=== PATIENT | female | born 1955 | race Caucasian/White ===

== ENCOUNTER 2016-07-27 10:58 | Emergency (ER) | payer MEDICARE ==
[~2016-07-27] VITALS: Ht 170.2 cm; Wt 131.8 kg
[~2016-07-27 10:58] MED LIST: ACET650S21 PO; ALBU5SOL5 INH; ALBU8.5H3 INH; ALPR-475 PO; ASPI-515 PO; CHLO25TA PO; CIPR500T87 PO; CYCL5TAB PO; DICY20TA3 PO; DIPH25CA61 PO; FLUO20TA25 PO; FLUO40CA9 PO; GUAI100L11 PO; HALO2ORA9 PO; HYDR25TA11 PO; LACT10SO28 PO; LACT1CAP43 PO; LIDO700A5 TD; LORA0.5T PO; LORA2ORA PO; METH5TAB2 PO; METO25TA35 PO; METR250T PO; METR500T4 PO; MORP30CA15 PO; MULT-26 PO; NAPR-874 PO; OMEG-76 PO; OMEP-110 PO; ONDA8TAB9 PO; OXYC10TA6 PO; OXYC5TAB3 PO; PRAV10TA2 PO; PROM25TA10 PO; SERT25TA3 PO; SULF1TAB24 PO; TRAZ100T15 PO; TRAZ50TA18 PO; VITA1TAB67 PO; WATER PILL; ZOLP10TA PO; [UNRECOGNIZED DRUG - OTHER] PO
[2016-07-27] MEDS ORDERED: SODIUM CHLORIDE 0.9% 1,000ML IVBOLUS ONE (12:00)
[2016-07-27] MEDS ORDERED: PANTOPRAZOLE 40 MG IV IVPush ONE (12:00)
[2016-07-27] MEDS ORDERED: ONDANSETRON 2MG/ML, 2ML IVPush ONE (12:00)
[2016-07-27] MEDS ORDERED: FAMOTIDINE 20 MG/2 ML IVPush ONE (12:00)
[2016-07-27] MEDS ORDERED: SODIUM CHLORIDE FLUSH 10ML SYR IVF ONE (12:00)
[2016-07-27] MEDS ORDERED: FAMOTIDINE 20 MG/2 ML ONE (12:02)
[2016-07-27] MEDS ORDERED: PANTOPRAZOLE 40 MG IV ONE (12:03)
[2016-07-27] MEDS ORDERED: ONDANSETRON 2MG/ML, 2ML ONE (12:03)
[2016-07-27 12:20] LABS: BLOOD UREA NITROGEN 5 mg/dL (7-18)
[2016-07-27 12:23] LABS: ASPARTATE AMINO TRANSFERASE 25 U/L (15-37)
[2016-07-27 12:28] LABS: HEMOGLOBIN 13.2 g/dL (11.7-16.4)
[2016-07-27] MEDS ORDERED: LORazepam 2 MG/ML, 1ML IVPush ONE (13:00)
[2016-07-27] MEDS ORDERED: PROMETHAZINE 25 MG/ML, 1ML IM ONE (13:00)
[2016-07-27] MEDS ORDERED: LORazepam 2 MG/ML, 1ML ONE (13:05)
[2016-07-27] MEDS ORDERED: PROMETHAZINE 25 MG/ML, 1ML ONE (13:05)
[2016-07-27 14:00] VITALS: BP 150/76
== END 2016-07-27 15:51 | disposition home or self-care (01) ==
LOC: ED 11:15
DX: K29.00 Acute gastritis without bleeding (principal); B96.81 Helicobacter pylori [H. pylori] as the cause of diseases classified elsewhere; I10 Essential (primary) hypertension; J44.9 Chronic obstructive pulmonary disease, unspecified; K72.90 Hepatic failure, unspecified without coma; E78.5 Hyperlipidemia, unspecified; G89.29 Other chronic pain
CPT/HCPCS: 36415; 80053; 83605; 83690; 85025; 85610; 85730; 86677; 86850; 86900; 96361; 96372; 96374; 96375; 99284; C9113; J2405; J2550; J7030; S0028

== ENCOUNTER 2017-05-15 12:36 | Inpatient (IN) | payer MEDICARE ==
[~2017-05-15] VITALS: Ht 167.6 cm; Wt 65.3 kg
[~2017-05-15 12:36] MED LIST changes: -ALBU5SOL5 INH; +ALBU5SOL6 INH; -ALBU8.5H3 INH; +ALBU8.5H8 INH; +ASPI-650 PO; +DIPH1TAB6 PO; -METR500T4 PO; +METR500T8 PO; +NADO20TA PO; -NAPR-874 PO; +NAPR250T6 PO; +TRAM50TA2 PO
[2017-05-15 14:27] LABS: ALBUMIN 3.6 g/dL (3.4-5.0); ANION GAP 7 mmol/L (5-15); CALCIUM 8.9 mg/dL (8.5-10.1); CHLORIDE 107 mmol/L (98-107); CREATININE 0.75 mg/dL (0.55-1.02)
[2017-05-15 14:29] LABS: ALANINE AMINOTRANSFERASE 19 U/L (12-78); ALKALINE PHOSPHATASE 94 U/L (45-117); BILIRUBIN,TOTAL 0.6 mg/dL (0.2-1.0); TOTAL PROTEIN 6.5 g/dL (6.4-8.2)
[2017-05-15 14:56] LABS: BASOPHILS # (AUTO) 0.01 x10^3/uL (0-0.1); BASOPHILS % (AUTO) 0 % (0-1); EOSINOPHILS # (AUTO) 0.05 x10^3/uL (0-0.4); EOSINOPHILS % (AUTO) 2 % (1-7); LYMPHOCYTES # (AUTO) 0.54 x10^3/uL (1-3.4); LYMPHOCYTES % (AUTO) 24 % (22-44); MD MORPH REVIEW ONLY; MEAN CORPUSCULAR HEMOGLOBIN 27.5 pg (27.0-34.8); MEAN CORPUSCULAR VOLUME 83.2 fL (80-100); MEAN PLATELET VOLUME 9.8 fL (7.4-10.4); MONOCYTES # (AUTO) 0.12 x10^3/uL (0.2-0.8); MONOCYTES % (AUTO) 5 % (2-9); NEUTROPHILS # (AUTO) 1.53 x10^3/uL (1.8-6.8); NEUTROPHILS % (AUTO) 68 % (42-75); RED CELL DISTRIBUTION WIDTH 19.4 % (9.6-15.2)
[2017-05-15 14:57] LABS: PLATELET COUNT 24 x10^3/uL (130-400)
[2017-05-15 14:58] LABS: ANISOCYTOSIS 1+
[2017-05-15 14:59] LABS: <PLATELET ESTIMATE> DECREASED; <PLT MORPHOLOGY> NORMAL PLT MORPH
[2017-05-15] MEDS ORDERED: SODIUM CHLORIDE 0.9%, 500ML IVBOLUS ONE (15:00)
[2017-05-15] MEDS ORDERED: DIPHENOXYLATE/ATROPINE TABLET PO PRN (16:00)
[2017-05-15] MEDS ORDERED: ONDANSETRON 2MG/ML, 2ML IVPush PRN (16:00)
[2017-05-15] MEDS ORDERED: DOCUSATE 100 MG CAPSULE PO PRN (16:00)
[2017-05-15] MEDS ORDERED: ALBUTEROL 0.5%, 20ML NEB PRN (16:00)
[2017-05-15] MEDS ORDERED: POLYETHYLENE GLYCOL 17 GM PACKET PO PRN (16:00)
[2017-05-15] MEDS ORDERED: NICOTINE 14MG/24 HR PATCH.TD24 ONE (16:39)
[2017-05-15] MEDS: NICOTINE 14MG/24 HR PATCH.TD24 TD SCH (16:45)
[2017-05-15] MEDS: LACTULOSE 20 GM/30 ML UDC PO SCH (16:45)
[2017-05-15] MEDS ORDERED: NS + 20MEQ KCL 1,000 ML IV ONE (16:46)
[2017-05-15] MEDS ORDERED: OXYcodone IR 5MG TABLET ONE (16:49)
[2017-05-15] MEDS: OXYcodone IR 5MG TABLET PO PRN (16:51)
[2017-05-15] MEDS: NS + 20MEQ KCL 1,000 ML IV SCH (16:56)
[2017-05-15 18:42] VITALS: BP 111/58
[2017-05-15] MEDS: LORazepam 0.5MG TABLET PO PRN (20:14)
[2017-05-15] MEDS: TRAZODONE 100MG TABLET PO SCH (21:54)
[2017-05-15] MEDS: FAMOTIDINE 20 MG TABLET PO SCH (21:54)
[2017-05-16] MEDS: TRAZODONE 100MG TABLET PO SCH (00:45)
[2017-05-16] MEDS: FAMOTIDINE 20 MG TABLET PO SCH ×2 (00:45→20:12)
[2017-05-16 01:05] LABS: MICROSCOPIC AUTO
[2017-05-16 01:06] LABS: CULTURE INDICATED? YES
[2017-05-16 01:10] LABS: AMPHETAMINE SCREEN, URINE Negative (Negative); BARBITURATE SCREEN, URINE Negative (Negative); BENZODIAZEPINE SCREEN, URINE Negative (Negative); CANNABINOID SCREEN, URINE Positive (Negative); COCAINE SCREEN, URINE Negative (Negative); METHADONE SCREEN, URINE Positive (Negative); OPIATE SCREEN, URINE Negative (Negative)
[2017-05-16 01:50] VITALS: BP 116/69
[2017-05-16] MEDS: OXYcodone IR 5MG TABLET PO PRN ×3 (05:38→20:12)
[2017-05-16] MEDS: NS + 20MEQ KCL 1,000 ML IV SCH (05:41)
[2017-05-16 05:44] LABS: CHLORIDE 111 mmol/L (98-107)
[2017-05-16 05:58] LABS: MEAN CORPUSCULAR HEMOGLOBIN 27.9 pg (27.0-34.8); MEAN CORPUSCULAR HGB CONC 33.5 g/dL (32.4-35.8); MEAN CORPUSCULAR VOLUME 83.4 fL (80-100); RED BLOOD COUNT 4.43 x10^6/uL (3.82-5.3); RED CELL DISTRIBUTION WIDTH 19.7 % (9.6-15.2)
[2017-05-16 05:58] LABS: ALANINE AMINOTRANSFERASE 14 U/L (12-78); ALBUMIN 3.1 g/dL (3.4-5.0); ALKALINE PHOSPHATASE 82 U/L (45-117); ANION GAP 9 mmol/L (5-15); BILIRUBIN,TOTAL 0.8 mg/dL (0.2-1.0); CALCIUM 8.3 mg/dL (8.5-10.1); CREATININE 0.65 mg/dL (0.55-1.02); TOTAL PROTEIN 5.5 g/dL (6.4-8.2)
[2017-05-16 06:24] LABS: MEAN PLATELET VOLUME 9.4 fL (7.4-10.4)
[2017-05-16 06:25] LABS: PLATELET COUNT 24 x10^3/uL (130-400)
[2017-05-16 06:37] LABS: BASOPHILS % (AUTO) 0 % (0-1); EOSINOPHILS # (AUTO) 0.05 x10^3/uL (0-0.4); EOSINOPHILS % (AUTO) 3 % (1-7); LYMPHOCYTES # (AUTO) 0.57 x10^3/uL (1-3.4); LYMPHOCYTES % (AUTO) 35 % (22-44); MD SCAN; MONOCYTES # (AUTO) 0.11 x10^3/uL (0.2-0.8); MONOCYTES % (AUTO) 7 % (2-9); NEUTROPHILS # (AUTO) 0.91 x10^3/uL (1.8-6.8); NEUTROPHILS % (AUTO) 56 % (42-75)
[2017-05-16 07:07] VITALS: BP_SYST 106; BP_SYST 130; BP_DIAS 61; BP_DIAS 78
[2017-05-16] MEDS ORDERED: LORazepam 1MG TABLET ONE (08:36)
[2017-05-16] MEDS: NADOLOL 20 MG HOMEMEDPO SCH (08:41)
[2017-05-16] MEDS: LACTULOSE 20 GM/30 ML UDC PO SCH ×2 (08:41→17:35)
[2017-05-16] MEDS: LORazepam 0.5MG TABLET PO PRN ×2 (08:42→16:11)
[2017-05-16] MEDS ORDERED: LACTULOSE 20 GM/30 ML UDC PO SCH (09:00)
[2017-05-16 15:21] VITALS: BP 148/77
[2017-05-16] MEDS: NICOTINE 14MG/24 HR PATCH.TD24 TD SCH (16:10)
[2017-05-16 19:26] VITALS: BP 142/80
[2017-05-17 00:41] VITALS: BP 145/77
[2017-05-17] MEDS: OXYcodone IR 5MG TABLET PO PRN ×3 (01:22→16:16)
[2017-05-17 07:25] VITALS: BP 128/71
[2017-05-17] MEDS: NADOLOL 20 MG HOMEMEDPO SCH (08:34)
[2017-05-17] MEDS: FAMOTIDINE 20 MG TABLET PO SCH (08:34)
[2017-05-17] MEDS: LACTULOSE 20 GM/30 ML UDC PO SCH ×2 (08:35→16:16)
[2017-05-17] MEDS: NICOTINE 14MG/24 HR PATCH.TD24 TD SCH (08:39)
[2017-05-17 10:59] LABS: INTERNATIONAL NORMALIZED RATIO 1.36 (0.93-1.1); PROTHROMBIN TIME 14.1 Seconds (9.6-11.5)
[2017-05-17] MEDS ORDERED: LORazepam 1MG TABLET ONE (13:38)
[2017-05-17] MEDS: LORazepam 0.5MG TABLET PO PRN (13:42)
[2017-05-17 16:03] VITALS: BP 135/76
[2017-05-17] MEDS ORDERED: METH4TAB2 PO (16:07)
== END 2017-05-17 17:00 | disposition home or self-care (01) | DRG 441 ==
LOC: ED 15:30 → EDIP 15:31 → SUATTDRO 15:37 → ED 16:08 → 4NOR 17:51
PROVIDERS: ADMIT Family Medicine; ATTEND Family Medicine
DX: K72.90 Hepatic failure, unspecified without coma (principal); G93.41 Metabolic encephalopathy; D69.3 Immune thrombocytopenic purpura; D70.9 Neutropenia, unspecified; F03.90 Unspecified dementia, unspecified severity, without behavioral disturbance, psychotic disturbance, mood disturbance, and anxiety; K75.4 Autoimmune hepatitis; Z88.6 Allergy status to analgesic agent; Z88.8 Allergy status to other drugs, medicaments and biological substances; E78.5 Hyperlipidemia, unspecified; F17.200 Nicotine dependence, unspecified, uncomplicated; I10 Essential (primary) hypertension; I25.10 Atherosclerotic heart disease of native coronary artery without angina pectoris; J44.9 Chronic obstructive pulmonary disease, unspecified; K74.60 Unspecified cirrhosis of liver; N28.9 Disorder of kidney and ureter, unspecified; Z66 Do not resuscitate; Z90.710 Acquired absence of both cervix and uterus; Z95.1 Presence of aortocoronary bypass graft
CPT/HCPCS: 36415; 70450; 71045; 76700; 80053; 80307; 81001; 82140; 83605; 83690; 83735; 83930; 85025; 85610; 87040; 87086; 96360; J3480; J7040; J7512

== ENCOUNTER 2017-07-12 18:56 | Inpatient (IN) | payer MEDICARE, MEDICAID ==
[~2017-07-12] VITALS: Ht 167.6 cm; Wt 68.2 kg
[~2017-07-12 18:56] MED LIST changes: +METH4TAB2 PO
[2017-07-12] MEDS ORDERED: DOCU100T PO (19:27)
[2017-07-12] MEDS ORDERED: LORA0.5T PO (19:27)
[2017-07-12] MEDS ORDERED: OMEP40CA6 PO (19:27)
[2017-07-12] MEDS ORDERED: OXYC10TA6 PO (19:27)
[2017-07-12] MEDS ORDERED: ONDA4TAB13 SL (19:27)
[2017-07-12] MEDS ORDERED: HYDR10TA4 PO (19:27)
[2017-07-12] MEDS ORDERED: LEVO330T PO (19:27)
[2017-07-12] MEDS ORDERED: CYPR4TAB PO (19:27)
[2017-07-12] MEDS ORDERED: SODIUM CHLORIDE 0.9% 1,000ML IVBOLUS ONE (19:30)
[2017-07-12] MEDS ORDERED: SODIUM CHLORIDE FLUSH 10ML SYR IVF ONE (19:30)
[2017-07-12] MEDS ORDERED: LORazepam 2 MG/ML, 1ML IVPush ONE (19:30)
[2017-07-12] MEDS ORDERED: AMPICILLIN/SULBACTAM 3 GM in SODIUM CHLORIDE 0.9% 100 ML IV ONE (19:30)
[2017-07-12] MEDS ORDERED: HYDROmorphone 1 MG/ML, 1ML IV ONE (19:30)
[2017-07-12] MEDS ORDERED: HYDROmorphone 1 MG/ML, 1ML ONE (19:35)
[2017-07-12] MEDS ORDERED: LORazepam 2 MG/ML, 1ML ONE (19:36)
[2017-07-12] MEDS ORDERED: OMNIPAQUE 350 MG/ML, 100ML BOTTLE ONE (19:36)
[2017-07-12 20:07] LABS: ALANINE AMINOTRANSFERASE 27 U/L (12-78); ALBUMIN 3.5 g/dL (3.4-5.0); ANION GAP 8 mmol/L (5-15); CALCIUM 8.6 mg/dL (8.5-10.1); CHLORIDE 107 mmol/L (98-107); CREATININE 0.65 mg/dL (0.55-1.02)
[2017-07-12 20:10] LABS: ALKALINE PHOSPHATASE 101 U/L (45-117); BILIRUBIN,TOTAL 0.8 mg/dL (0.2-1.0); TOTAL PROTEIN 6.6 g/dL (6.4-8.2)
[2017-07-12] MEDS ORDERED: ALBUTEROL/IPRATROPIUM 2.5MG/0.5MG, 3 ML ONE (20:19)
[2017-07-12 20:21] LABS: BASOPHILS % (AUTO) 0 % (0-1); EOSINOPHILS # (AUTO) 0.03 x10^3/uL (0-0.4); EOSINOPHILS % (AUTO) 1 % (1-7); LYMPHOCYTES % (AUTO) 21 % (22-44); MD SCAN; MEAN CORPUSCULAR HEMOGLOBIN 28.4 pg (27.0-34.8); MEAN CORPUSCULAR HGB CONC 32.9 g/dL (32.4-35.8); MEAN CORPUSCULAR VOLUME 86.2 fL (80-100); MEAN PLATELET VOLUME 8.8 fL (7.4-10.4); MONOCYTES # (AUTO) 0.22 x10^3/uL (0.2-0.8); MONOCYTES % (AUTO) 9 % (2-9); NEUTROPHILS # (AUTO) 1.65 x10^3/uL (1.8-6.8); NEUTROPHILS % (AUTO) 69 % (42-75); RED BLOOD COUNT 4.43 x10^6/uL (3.82-5.3); RED CELL DISTRIBUTION WIDTH 19.8 % (9.6-15.2)
[2017-07-12 20:25] LABS: PLATELET COUNT 23 x10^3/uL (130-400)
[2017-07-12 20:28] LABS: RAPID INFLUENZA A Negative (Negative); RAPID INFLUENZA B Negative (Negative)
[2017-07-12] MEDS ORDERED: ALBUTEROL/IPRATROPIUM 2.5MG/0.5MG, 3 ML NPPB ONE (20:30)
[2017-07-12] MEDS ORDERED: SODIUM CHLORIDE FLUSH 10ML SYR IVF PRN (22:00)
[2017-07-12] MEDS ORDERED: hydrOXyzine 10MG TABLET PO PRN (23:30)
[2017-07-12] MEDS ORDERED: ALBUTEROL 0.5%, 20ML NEB PRN (23:30)
[2017-07-12 23:35] VITALS: BP 111/69
[2017-07-13] MEDS ORDERED: CYPROHEPTADINE 4 MG TABLET PO SCH ×2 (00:08→09:00)
[2017-07-13] MEDS ORDERED: LEVOCARNITINE 330 MG TABLET PO SCH ×2 (00:08→09:00)
[2017-07-13 00:52] VITALS: BP 107/64
[2017-07-13] MEDS: LEVOCARNITINE 330 MG TABLET PO SCH ×3 (01:06→20:03)
[2017-07-13] MEDS: LORazepam 0.5MG TABLET PO SCH ×4 (01:06→20:04)
[2017-07-13] MEDS: TRAZODONE 100MG TABLET PO SCH ×2 (01:06→20:04)
[2017-07-13] MEDS: OXYcodone IR 5MG TABLET PO PRN ×5 (01:07→20:04)
[2017-07-13] MEDS: CYPROHEPTAD HOMEMEDPO SCH ×4 (01:07→20:04)
[2017-07-13 06:49] VITALS: BP 106/65
[2017-07-13] MEDS: DOCUSATE 100 MG CAPSULE PO SCH (07:58)
[2017-07-13] MEDS: OMEPRAZOLE 20 MG CAPSULE.DR PO SCH (07:59)
[2017-07-13] MEDS: AMPICILLIN/SULBACTAM 3 GM in SODIUM CHLORIDE 0.9% 100 ML IV SCH ×2 (08:01→15:32)
[2017-07-13] MEDS ORDERED: LORazepam 0.5MG TABLET PO SCH (09:00)
[2017-07-13] MEDS ORDERED: ALBUTEROL/IPRATROPIUM 2.5MG/0.5MG, 3 ML ONE (10:11)
[2017-07-13] MEDS ORDERED: ALBUTEROL/IPRATROPIUM 2.5MG/0.5MG, 3 ML NPPB PRN (12:00)
[2017-07-13 13:24] VITALS: BP 95/56
[2017-07-13] MEDS ORDERED: FLUCONAZOLE 100 MG TABLET PO ONE (15:00)
[2017-07-13] MEDS ORDERED: NICOTINE 7 MG/24 HR PATCH.TD24 TD SCH (15:00)
[2017-07-13] MEDS: LACTOBACILLUS CHEW TABLET PO SCH ×2 (15:33→20:04)
[2017-07-13] MEDS: LACTATED RINGERS 1,000 ML IV SCH (15:39)
[2017-07-13 20:14] VITALS: BP 114/66
[2017-07-13] MEDS ORDERED: TRAZODONE 100MG TABLET PO SCH (21:00)
[2017-07-14] MEDS: AMPICILLIN/SULBACTAM 3 GM in SODIUM CHLORIDE 0.9% 100 ML IV SCH ×2 (00:18→09:09)
[2017-07-14] MEDS: OXYcodone IR 5MG TABLET PO PRN ×2 (01:08→07:43)
[2017-07-14] MEDS: LACTATED RINGERS 1,000 ML IV SCH ×2 (01:09→09:44)
[2017-07-14 01:17] VITALS: BP 120/68
[2017-07-14] MEDS: LACTOBACILLUS CHEW TABLET PO SCH (06:11)
[2017-07-14 07:15] VITALS: BP 124/65
[2017-07-14] MEDS ORDERED: AMOX1TAB64 PO (07:39)
[2017-07-14] MEDS: LEVOCARNITINE 330 MG TABLET PO SCH (07:43)
[2017-07-14] MEDS: CYPROHEPTAD HOMEMEDPO SCH (07:43)
[2017-07-14] MEDS: LORazepam 0.5MG TABLET PO SCH (07:43)
[2017-07-14] MEDS: OMEPRAZOLE 20 MG CAPSULE.DR PO SCH (07:43)
[2017-07-14] MEDS: DOCUSATE 100 MG CAPSULE PO SCH (07:44)
== END 2017-07-14 11:07 | disposition home or self-care (01) | DRG 872 ==
LOC: ED 21:42 → EDIP 21:45 → 3NE 23:28
PROVIDERS: ADMIT Internal Medicine; ATTEND Internal Medicine
DX: A41.9 Sepsis, unspecified organism (principal); D69.59 Other secondary thrombocytopenia; F03.90 Unspecified dementia, unspecified severity, without behavioral disturbance, psychotic disturbance, mood disturbance, and anxiety; L03.221 Cellulitis of neck; L03.211 Cellulitis of face; K11.20 Sialoadenitis, unspecified; K74.60 Unspecified cirrhosis of liver; D72.819 Decreased white blood cell count, unspecified; I10 Essential (primary) hypertension; I25.10 Atherosclerotic heart disease of native coronary artery without angina pectoris; E78.5 Hyperlipidemia, unspecified; J44.9 Chronic obstructive pulmonary disease, unspecified; K72.90 Hepatic failure, unspecified without coma; K75.4 Autoimmune hepatitis; N28.9 Disorder of kidney and ureter, unspecified; F32.9 Major depressive disorder, single episode, unspecified; Z66 Do not resuscitate; Z90.49 Acquired absence of other specified parts of digestive tract; Z90.710 Acquired absence of both cervix and uterus; Z95.1 Presence of aortocoronary bypass graft; Z88.6 Allergy status to analgesic agent; Z88.1 Allergy status to other antibiotic agents; Z88.5 Allergy status to narcotic agent; Z88.8 Allergy status to other drugs, medicaments and biological substances; Z79.899 Other long term (current) drug therapy; Z84.89 Family history of other specified conditions
CPT/HCPCS: 36415; 70491; 80053; 83605; 84145; 85025; 86308; 87040; 87081; 87400; 87880; 94640; 96361; 96374; J0295; J1170; J7620; Q9967; J2060; J7030; J7120

== ENCOUNTER 2017-09-06 13:33 | Emergency (ER) | payer MEDICAID, MEDICARE ==
[~2017-09-06] VITALS: Ht 167.6 cm; Wt 59.0 kg
[~2017-09-06 13:33] MED LIST changes: +AMOX1TAB64 PO; +CYPR4TAB PO; +DOCU100T PO; +HYDR10TA4 PO; +LEVO330T PO; +OMEP40CA6 PO; +ONDA4TAB13 SL
[2017-09-06] MEDS ORDERED: SODIUM CHLORIDE 0.9% 1,000 ML IV ONE (14:03)
[2017-09-06] MEDS ORDERED: ONDANSETRON ODT 4 MG ONE (14:15)
[2017-09-06] MEDS ORDERED: HYDROmorphone 1 MG/ML, 1ML IVPush PRN (14:30)
[2017-09-06] MEDS ORDERED: SODIUM CHLORIDE 0.9% 1,000ML IVBOLUS ONE (14:30)
[2017-09-06] MEDS ORDERED: ONDANSETRON ODT 4 MG PO ONE (14:30)
[2017-09-06] MEDS ORDERED: SODIUM CHLORIDE FLUSH 10ML SYR IVF ONE (14:30)
[2017-09-06 14:38] LABS: ALANINE AMINOTRANSFERASE 22 U/L (12-78); ALBUMIN 3.6 g/dL (3.4-5.0); ANION GAP 4 mmol/L (5-15); CALCIUM 8.9 mg/dL (8.5-10.1); CHLORIDE 110 mmol/L (98-107); CREATININE 0.85 mg/dL (0.55-1.02)
[2017-09-06 14:40] LABS: ALKALINE PHOSPHATASE 76 U/L (45-117); BILIRUBIN,TOTAL 0.6 mg/dL (0.2-1.0); INTERNATIONAL NORMALIZED RATIO 1.35 (0.93-1.1); TOTAL PROTEIN 6.4 g/dL (6.4-8.2)
[2017-09-06 14:42] LABS: MICROSCOPIC AUTO
[2017-09-06 14:45] LABS: CULTURE INDICATED? YES
[2017-09-06] MEDS ORDERED: DEXTROSE 50%, 50ML SYRINGE ONE (14:55)
[2017-09-06 15:15] LABS: BASOPHILS % (AUTO) 0 % (0-1); EOSINOPHILS # (AUTO) 0.06 x10^3/uL (0-0.4); EOSINOPHILS % (AUTO) 2 % (1-7); LYMPHOCYTES % (AUTO) 27 % (22-44); MD SCAN; MEAN CORPUSCULAR HEMOGLOBIN 28.7 pg (27.0-34.8); MEAN CORPUSCULAR VOLUME 86.9 fL (80-100); MEAN PLATELET VOLUME 9.6 fL (7.4-10.4); MONOCYTES # (AUTO) 0.18 x10^3/uL (0.2-0.8); MONOCYTES % (AUTO) 7 % (2-9); NEUTROPHILS % (AUTO) 64 % (42-75); RED BLOOD COUNT 4.43 x10^6/uL (3.82-5.3); RED CELL DISTRIBUTION WIDTH 16.3 % (9.6-15.2)
[2017-09-06 15:17] LABS: PLATELET COUNT 31 x10^3/uL (130-400)
[2017-09-06] MEDS ORDERED: DEXTROSE 50%, 50ML VIAL IVPush ONE (15:30)
[2017-09-06 17:28] VITALS: BP 122/69
== END 2017-09-06 17:30 | disposition home or self-care (01) ==
LOC: ED 14:10
DX: R10.84 Generalized abdominal pain (principal); R11.2 Nausea with vomiting, unspecified; D69.6 Thrombocytopenia, unspecified; D72.819 Decreased white blood cell count, unspecified; G89.29 Other chronic pain; K72.90 Hepatic failure, unspecified without coma; I10 Essential (primary) hypertension; J44.9 Chronic obstructive pulmonary disease, unspecified; E78.5 Hyperlipidemia, unspecified; F03.90 Unspecified dementia, unspecified severity, without behavioral disturbance, psychotic disturbance, mood disturbance, and anxiety; K74.60 Unspecified cirrhosis of liver; F17.200 Nicotine dependence, unspecified, uncomplicated; Z90.710 Acquired absence of both cervix and uterus; Z90.49 Acquired absence of other specified parts of digestive tract; Z95.1 Presence of aortocoronary bypass graft
CPT/HCPCS: 36415; 74022; 80053; 81001; 83605; 83690; 83735; 85025; 85610; 85730; 87077; 87086; 96361; 96374; 99285; J7030; Q0162; 87186

== ENCOUNTER 2017-09-23 14:24 | Emergency (ER) | payer MEDICARE ==
[~2017-09-23] VITALS: Ht 170.2 cm; Wt 63.8 kg
[2017-09-23 14:24] VITALS: BP 148/116
[2017-09-23] MEDS ORDERED: PROMETHAZINE 25 MG/ML, 1ML ONE (14:42)
[2017-09-23] MEDS ORDERED: KETOROLAC 30 MG/1 ML ONE (14:42)
[2017-09-23] MEDS ORDERED: DIPHENHYDRAMINE 50 MG CAPSULE ONE (14:42)
[2017-09-23] MEDS ORDERED: SODIUM CHLORIDE FLUSH 10ML SYR IVF ONE (15:00)
[2017-09-23] MEDS ORDERED: DIPHENHYDRAMINE 50 MG/ML, 1ML IM ONE (15:00)
[2017-09-23] MEDS ORDERED: DIPHENHYDRAMINE 50 MG/ML, 1ML IVPush ONE (15:00)
[2017-09-23] MEDS ORDERED: KETOROLAC 30 MG/1 ML IM ONE (15:00)
[2017-09-23] MEDS ORDERED: PROMETHAZINE 25 MG/ML, 1ML IM ONE (15:00)
[2017-09-23] MEDS ORDERED: KETOROLAC 60 MG/2 ML IV ONE (15:00)
[2017-09-23 15:10] LABS: ALBUMIN 3.9 g/dL (3.4-5.0); ANION GAP 6 mmol/L (5-15); CALCIUM 8.7 mg/dL (8.5-10.1); CHLORIDE 111 mmol/L (98-107); CREATININE 0.71 mg/dL (0.55-1.02)
[2017-09-23 15:19] LABS: MEAN CORPUSCULAR HEMOGLOBIN 29.4 pg (27.0-34.8); MEAN CORPUSCULAR HGB CONC 33.6 g/dL (32.4-35.8); MEAN CORPUSCULAR VOLUME 87.5 fL (80-100); MEAN PLATELET VOLUME 9.6 fL (7.4-10.4); RED CELL DISTRIBUTION WIDTH 17.3 % (9.6-15.2)
[2017-09-23 15:20] LABS: BASOPHILS % (AUTO) 0 % (0-1); EOSINOPHILS # (AUTO) 0.04 x10^3/uL (0-0.4); EOSINOPHILS % (AUTO) 1 % (1-7); HEMOGRAM NOTE RECHECKED; LYMPHOCYTES # (AUTO) 0.63 x10^3/uL (1-3.4); LYMPHOCYTES % (AUTO) 24 % (22-44); MD SCAN; MONOCYTES # (AUTO) 0.16 x10^3/uL (0.2-0.8); MONOCYTES % (AUTO) 6 % (2-9); NEUTROPHILS # (AUTO) 1.84 x10^3/uL (1.8-6.8); NEUTROPHILS % (AUTO) 69 % (42-75)
[2017-09-23 15:23] LABS: PLATELET COUNT 29 x10^3/uL (130-400)
== END 2017-09-23 16:30 | disposition home or self-care (01) ==
LOC: ED 16:21
DX: F41.1 Generalized anxiety disorder (principal); R06.4 Hyperventilation; F11.23 Opioid dependence with withdrawal; D69.6 Thrombocytopenia, unspecified; I10 Essential (primary) hypertension; J44.9 Chronic obstructive pulmonary disease, unspecified; G89.29 Other chronic pain; F17.200 Nicotine dependence, unspecified, uncomplicated; K74.60 Unspecified cirrhosis of liver; Z90.49 Acquired absence of other specified parts of digestive tract; Z95.1 Presence of aortocoronary bypass graft
CPT/HCPCS: 36415; 80048; 82040; 85025; 96372; 99284; J1200; J1885; J2550

== ENCOUNTER 2018-02-15 13:52 | Emergency (ER) | payer MEDICARE ==
[~2018-02-15] VITALS: Ht 165.1 cm; Wt 65.2 kg
[~2018-02-15 13:52] MED LIST changes: -CYPR4TAB PO; +CYPR4TAB36 PO; +TRAZ-136 PO; +TRAZ-137 PO; -TRAZ100T15 PO; -TRAZ50TA18 PO
[2018-02-15] MEDS ORDERED: PROMETHAZINE 25MG TABLET ONE (14:24)
[2018-02-15] MEDS ORDERED: PROMETHAZINE 25MG TABLET PO ONE (14:30)
[2018-02-15 15:10] LABS: ALANINE AMINOTRANSFERASE 32 U/L (12-78); ALBUMIN 3.7 g/dL (3.4-5.0); ANION GAP 6 mmol/L (5-15); CALCIUM 8.7 mg/dL (8.5-10.1); CHLORIDE 109 mmol/L (98-107); CREATININE 0.84 mg/dL (0.55-1.02)
[2018-02-15 15:12] LABS: ALKALINE PHOSPHATASE 98 U/L (45-117); BILIRUBIN,TOTAL 0.6 mg/dL (0.2-1.0); TOTAL PROTEIN 6.6 g/dL (6.4-8.2)
[2018-02-15 15:31] LABS: MD YES; MEAN CORPUSCULAR HEMOGLOBIN 30.4 pg (27.0-34.8); MEAN CORPUSCULAR HGB CONC 33.8 g/dL (32.4-35.8); MEAN PLATELET VOLUME 9.5 fL (7.4-10.4); RED BLOOD COUNT 4.27 x10^6/uL (3.82-5.3); RED CELL DISTRIBUTION WIDTH 16.7 % (9.6-15.2)
[2018-02-15 15:34] LABS: EOS#(MANUAL) 0.12 x10^3/uL (0.0-0.4); EOS% (MANUAL) 5 % (1-7); LYMPH#(MANUAL) 0.36 x10^3/uL (1-3.4); LYMPHS% (MANUAL) 15 % (22-44); MONOS#(MANUAL) 0.19 x10^3/uL (0.3-2.7); MONOS% (MANUAL) 8 % (2-9); SEG#(MANUAL) 1.73 x10^3/uL (1.8-6.8); SEGS% (MANUAL) 72 % (42-75)
[2018-02-15 15:35] LABS: <PLATELET ESTIMATE> DECREASED; ANISOCYTOSIS 1+; LARGE PLATELETS 1+
[2018-02-15 15:37] LABS: PLATELET COUNT 28 x10^3/uL (130-400)
[2018-02-15 16:06] VITALS: BP 100/46
== END 2018-02-15 16:09 | disposition home or self-care (01) ==
LOC: ED 15:21
DX: D70.9 Neutropenia, unspecified (principal); D69.6 Thrombocytopenia, unspecified; E78.5 Hyperlipidemia, unspecified; J44.9 Chronic obstructive pulmonary disease, unspecified; I10 Essential (primary) hypertension; Z90.49 Acquired absence of other specified parts of digestive tract; Z90.710 Acquired absence of both cervix and uterus; Z95.1 Presence of aortocoronary bypass graft; F17.200 Nicotine dependence, unspecified, uncomplicated
CPT/HCPCS: 36415; 80053; 85025; 99284; Q0169

== ENCOUNTER 2019-12-26 03:26 | Emergency (ER) | payer MEDICARE, OTHER ==
[~2019-12-26] VITALS: Ht 165.1 cm; Wt 89.9 kg
[~2019-12-26 03:26] MED LIST changes: -ALPR-475 PO; +ALPR0.5T7 PO; +HYDR-2995 PO; +HYDR-826 PO; -HYDR10TA4 PO; -HYDR25TA11 PO; -LORA2ORA PO; +LORA2ORA7 PO; +METR-90 PO; -METR500T8 PO; +OMEP40CA42 PO; -OMEP40CA6 PO; -TRAZ-136 PO; -TRAZ-137 PO; +TRAZ-175 PO; +TRAZ50TA66 PO
[2019-12-26 04:53] LABS: ALANINE AMINOTRANSFERASE 23 U/L (12-78); ALBUMIN 4.3 g/dL (3.4-5.0); ANION GAP 5 mmol/L (5-15); CALCIUM 9.8 mg/dL (8.5-10.1); CHLORIDE 112 mmol/L (98-107)
[2019-12-26 04:56] LABS: ALKALINE PHOSPHATASE 109 U/L (45-117); BILIRUBIN,TOTAL 1.2 mg/dL (0.2-1.0); TOTAL PROTEIN 7.3 g/dL (6.4-8.2)
[2019-12-26 05:41] LABS: MD MORPH REVIEW ONLY; MEAN CORPUSCULAR HEMOGLOBIN 28.4 pg (27.0-34.8); MEAN CORPUSCULAR HGB CONC 33.5 g/dL (32.4-35.8); MEAN CORPUSCULAR VOLUME 84.7 fL (80-100); MEAN PLATELET VOLUME 9.5 fL (7.4-10.4); RED BLOOD COUNT 4.96 x10^6/uL (3.82-5.3); RED CELL DISTRIBUTION WIDTH 18.5 % (9.6-15.2)
--- NOTE | 2019-12-26 05:42 | NUR ---
PLAT 31 PER LAB NOTIFIED
[2019-12-26 05:43] LABS: BASOPHILS # (AUTO) 0.01 x10^3/uL (0-0.1); BASOPHILS % (AUTO) 0 % (0-1); EOSINOPHILS # (AUTO) 0.18 x10^3/uL (0-0.4); EOSINOPHILS % (AUTO) 3 % (1-7); LYMPHOCYTES # (AUTO) 0.83 x10^3/uL (1-3.4); LYMPHOCYTES % (AUTO) 15 % (22-44); MONOCYTES # (AUTO) 0.39 x10^3/uL (0.2-0.8); MONOCYTES % (AUTO) 7 % (2-9); NEUTROPHILS # (AUTO) 4.21 x10^3/uL (1.8-6.8); NEUTROPHILS % (AUTO) 75 % (42-75); PLATELET COUNT 31 x10^3/uL (130-400)
[2019-12-26 05:44] LABS: <PLATELET ESTIMATE> DECREASED; <PLT MORPHOLOGY> NORMAL PLT MORPH; ANISOCYTOSIS 1+
--- NOTE | 2019-12-26 05:47 | NUR ---
TASK RN: PT UP TO BATHROOM, UNABLE TO PROVIDE UA AT THIS TIME.
--- NOTE | 2019-12-26 05:59 | NUR ---
Pt straight cathed at this time for urine sample, sent to lab
[2019-12-26 06:09] LABS: MICROSCOPIC AUTO
[2019-12-26 06:33] VITALS: BP 130/62
[2019-12-27] MEDS ORDERED: ESCI5TAB7 PO (00:28)
[2019-12-27] MEDS ORDERED: LORA-446 PO (00:29)
[2019-12-27] MEDS ORDERED: FURO20TA3 PO (12:26)
[2019-12-27] MEDS ORDERED: AMIT75TA PO (12:26)
[2019-12-27] MEDS ORDERED: RIFA550T4 PO (12:26)
[2019-12-27] MEDS ORDERED: TIZA4CAP2 PO (12:26)
[2019-12-27] MEDS ORDERED: SPIR50TA4 PO (12:26)
== END 2019-12-26 06:42 | disposition home or self-care (01) ==
LOC: ED 05:36
DX: D69.6 Thrombocytopenia, unspecified (principal); R41.0 Disorientation, unspecified; I10 Essential (primary) hypertension; E78.5 Hyperlipidemia, unspecified; J45.909 Unspecified asthma, uncomplicated
CPT/HCPCS: 36415; 80053; 80307; 81001; 85025; 99283

== ENCOUNTER 2020-02-03 14:06 | Emergency (ER) | payer OTHER ==
[~2020-02-03] VITALS: Ht 167.6 cm; Wt 90.0 kg
[~2020-02-03 14:06] MED LIST changes: +AMIT75TA PO; +ESCI5TAB7 PO; +FURO20TA3 PO; +HALO2ORA3 PO; -HALO2ORA9 PO; +LORA-445 PO; +LORA-446 PO; -NADO20TA PO; +NADO20TA2 PO; +NICO-487 TD; +OXYC5SOL8 PO; +QUET25TA7 PO; +RIFA550T4 PO; +SPIR50TA4 PO; +TIZA4CAP2 PO
[2020-02-03] MEDS ORDERED: LORazepam 1MG TABLET PO ONE (14:30)
--- NOTE | 2020-02-03 15:00 | NUR ---
break RN note: pt presents to ED with c/o medication withdrawal, benzodiazepine and opiate. pt states she has prescriptions for chronic pain and anxiety, states her last prescription was picked up by her daughter who did not give her the medications, so she has been out of her medications for several weeks. pt seen and examined by AKIL Rubi, who requests urine drug screen prior to ativan admin. pt is hysterical and refuses to remain still. pt continually crying. pt eager to provide urine sample stating she wants to prove that she has not had her medications, however when pt was walked to bathroom, she refused RN's assistance then voided into toilet instead of hat provided for urine collection. urine sample not provided by pt walked back to room, reconnected to bp and spo2 monitors, pt wears home oxygen but refuses to keep cannula in nose, spo2 90-91% at this time. AKIL Rubi notified of pt refusal to provide urine. report given to DAVION Lara who is assuming care.
[2020-02-03] MEDS ORDERED: LORazepam 1MG TABLET ONE ×2 (15:45→22:54)
[2020-02-03 16:18] LABS: AMPHETAMINE SCREEN, URINE Negative (Negative); BARBITURATE SCREEN, URINE Negative (Negative); BENZODIAZEPINE SCREEN, URINE Positive (Negative); CANNABINOID SCREEN, URINE Positive (Negative); COCAINE SCREEN, URINE Negative (Negative); METHADONE SCREEN, URINE Negative (Negative); OPIATE SCREEN, URINE Negative (Negative)
--- NOTE | 2020-02-03 16:26 | NUR ---
Pt straight cathed by female RN, THUY sent to lab.
--- NOTE | 2020-02-03 16:36 | NUR ---
Pts anxiety improved somewhat, still anxious. In bed now, has stopped pacing. States that her daughter is stealing her prescriptions, that she is being "betrayed" by daughter. States that she wants her daughter "detained".
--- NOTE | 2020-02-03 16:52 | NUR ---
Pt assisted to bathroom by tech, placed in diaper per request. Back in room.
[2020-02-03 17:10] LABS: BASOPHILS % (AUTO) 0 % (0-1); EOSINOPHILS % (AUTO) 2 % (1-7); LYMPHOCYTES % (AUTO) 12 % (22-44); MEAN CORPUSCULAR HEMOGLOBIN 27.7 pg (27.0-34.8); MEAN CORPUSCULAR HGB CONC 32.9 g/dL (32.4-35.8); MEAN PLATELET VOLUME 8.6 fL (7.4-10.4); MONOCYTES % (AUTO) 9 % (2-9); NEUTROPHILS % (AUTO) 77 % (42-75); RED BLOOD COUNT 4.74 x10^6/uL (3.82-5.3)
[2020-02-03 17:21] LABS: ALANINE AMINOTRANSFERASE 25 U/L (12-78); ALBUMIN 4.2 g/dL (3.4-5.0); ANION GAP 8 mmol/L (5-15); CALCIUM 9.5 mg/dL (8.5-10.1); CHLORIDE 108 mmol/L (98-107); CREATININE 0.92 mg/dL (0.55-1.02)
[2020-02-03 17:22] LABS: ALKALINE PHOSPHATASE 106 U/L (45-117); BILIRUBIN,TOTAL 2.6 mg/dL (0.2-1.0); TOTAL PROTEIN 7.2 g/dL (6.4-8.2)
[2020-02-03 17:37] LABS: PLATELET COUNT 34 x10^3/uL (130-400)
[2020-02-03 17:39] LABS: MD MORPH REVIEW ONLY
[2020-02-03 18:02] LABS: ANISOCYTOSIS 1+; OVALOCYTES 1+
[2020-02-03 18:03] LABS: <PLATELET ESTIMATE> DECREASED; POLYCHROMASIA 1+
[2020-02-03 18:04] LABS: <PLT MORPHOLOGY> NORMAL PLT MORPH
--- NOTE | 2020-02-03 18:38 | NUR ---
Provided with po fluids/ice
--- NOTE | 2020-02-03 19:07 | NUR ---
report received from Marco RICARDO
--- NOTE | 2020-02-03 19:43 | NUR ---
PT PLACED ON LEGAL HOLD. BELONGINGS PLACED IN BAGS AND REMOVED FROM ROOM, SITTER AT DOORWAY, SI PRECAUTIONS IN PLACED
--- NOTE | 2020-02-03 19:59 | NUR ---
PLACED ON 2L NC ON OXYGEN TO MAINTAIN O2 ABOVE 90%. PER PT SHE WEARS O2 AT HOME. 1 GARAGE DOOR DOWN AND 1 DOOR UP TO IN ORDER TO MONITOR 02 AND TO GIVE 02 THROUGH NC.
--- NOTE | 2020-02-03 20:27 | NUR ---
MT: DAUGHTER (JODI [phone]) CALLED AND INFORMED US THAT THE PT "HAD NOT TAKEN HER PSYCH MEDS IN THE THE LAST FEW DAYS WHICH COULD BE CAUSING THESE ISSUES". SHE ALSO INFORMED US THAT THE ROOMATE OF THE PT STATED SHE COMPLAINED OF SUICIDAL IDEATIONS WELL THE LAST FEW DAYS.
--- NOTE | 2020-02-03 20:34 | NUR ---
SI FOOD TRAY GIVEN. SITTER AT DOORWAY
--- NOTE | 2020-02-03 21:01 | NUR ---
HOSPITAL BED REQUESTED
--- NOTE | 2020-02-03 22:40 | NUR ---
PT TRANSFERED TO HOSPITAL BED.
[2020-02-03] MEDS ORDERED: HYDROcodone/APAP 5/325 TABLET ONE (22:54)
[2020-02-03] MEDS: HYDROcodone/APAP 5/325 TABLET PO PRN (22:56)
[2020-02-03] MEDS: LORazepam 1MG TABLET PO PRN (22:56)
--- NOTE | 2020-02-03 23:42 | NUR ---
MT: PSYCH PACKET SENT TO [facility] [place],[facility], AND [facility].
--- NOTE | 2020-02-04 | NUR ---
PT RESTING ON HOSPITAL BED. EYES CLOSED. RESP EVEN AND UNLABORED. SITTER AT DOORWAY FOR FREQUENT CHECKS.
--- NOTE | 2020-02-04 00:29 | NUR ---
MT: LOYDA AT [facility] DENIED PT DUE TO MEDICAL COMPLEXITIES.
--- NOTE | 2020-02-04 01:00 | NUR ---
PT RESTING ON HOSPITAL BED. EYES CLOSED. RESP EVEN AND UNLABORED. SITTER AT DOORWAY FOR FREQUENT CHECKS.
--- NOTE | 2020-02-04 02:00 | NUR ---
PT RESTING ON HOSPITAL BED. EYES CLOSED. RESP EVEN AND UNLABORED. SITTER AT DOORWAY FOR FREQUENT CHECKS.
--- NOTE | 2020-02-04 03:14 | NUR ---
PT RESTING ON HOSPITAL BED. EYES CLOSED. RESP EVEN AND UNLABORED. SITTER AT DOORWAY FOR FREQUENT CHECKS.
--- NOTE | 2020-02-04 03:55 | NUR ---
pt up and requesting 'electrolytes' for her muscle spasms. apple juice provided. pt polite
--- NOTE | 2020-02-04 04:14 | NUR ---
PT AMBULATED TO BATHROOM STEADILY WITH NO WALKING AIDS. PT HAD SMALL SOFT BM, PROVIDED CLEAN BRIEFS AND PT ABLE TO CLEAN HERSELF WITH NO ASSISTANCE.
--- NOTE | 2020-02-04 06:03 | NUR ---
MT: RB DENIED PT DUE TO MEDICAL COMPLEXITIES.
--- NOTE | 2020-02-04 07:04 | NUR ---
RECEIVED REPORT FROM NATALIE GONZALEZ RN'S. PT RESTING IN BED. NADN. ROOM REMAINS SECURE. SITTER REMAINS AT BEDSIDE.
[2020-02-04 08:30] VITALS: BP 118/71
--- NOTE | 2020-02-04 08:32 | NUR ---
PT RESTING IN BED. NADN. VSS. SITTER REMAINS AT BEDSIDE. ROOM REMAINS SECURE. PT PROVIDED W/ SI BREAKFAST TRAY.
[2020-02-04] MEDS ORDERED: HYDROcodone/APAP 5/325 TABLET ONE (08:40)
[2020-02-04] MEDS: HYDROcodone/APAP 5/325 TABLET PO PRN (08:40)
[2020-02-04] MEDS ORDERED: LORazepam 1MG TABLET ONE (08:42)
[2020-02-04] MEDS: LORazepam 1MG TABLET PO PRN (08:42)
--- NOTE | 2020-02-04 08:51 | NUR ---
ANAI [phone]
--- NOTE | 2020-02-04 09:30 | NUR ---
PT RESTING IN BED. NADN. SITTER REMAINS AT BEDSIDE. ROOM REMAINS SECURE.
--- NOTE | 2020-02-04 10:23 | NUR ---
PT RESTING IN BED. NADN. SITTER REMAINS AT BEDSIDE. ROOM REMAINS SECURE.
--- NOTE | 2020-02-04 10:58 | NUR ---
REPORT GIVEN TO DAVION OLSON.
--- NOTE | 2020-02-04 11:25 | NUR ---
PT RESTING COMFORTABLY ON HOSPITAL BED. RESP EVEN AND UNLABORED. PT IN DIRECT SIGHT OF SITTER.
--- NOTE | 2020-02-04 12:19 | NUR ---
DIET TRAY DELIVERED. PT APPRECIATIVE. PT IN DIRECT SIGHT OF SITTER.
--- NOTE | 2020-02-04 12:58 | NUR ---
PSYCH FEED MILL OPERATOR AT BEDSIDE.
[2020-02-04] MEDS ORDERED: OXYC5CAP2 PO (13:33)
[2020-02-04] MEDS ORDERED: OMEP-110 PO (13:33)
[2020-02-04] MEDS ORDERED: QUET25TA5 PO (13:33)
[2020-02-04] MEDS ORDERED: LORA-445 PO (13:33)
[2020-02-04] MEDS ORDERED: TIZA4TAB2 PO (13:33)
[2020-02-04] MEDS ORDERED: QUETIAPINE 25MG TABLET PO PRN (14:00)
[2020-02-04] MEDS ORDERED: ESCITALOPRAM 10MG TABLET PO SCH (14:00)
[2020-02-04] MEDS ORDERED: QUETIAPINE 25MG TABLET ONE (14:14)
--- NOTE | 2020-02-04 14:19 | NUR ---
MED REQUESTED FROM PHARMACY
--- NOTE | 2020-02-04 15:22 | NUR ---
RECEIVED MEDS FROM PHARMACY. MEDS ADMIN PER JUN. PER PSYCH CUTTER GRINDER OPERATOR OK TO GIVE PT HER BELONGINGS. SW AT BEDSIDE.
== END 2020-02-04 15:59 | disposition home or self-care (01) ==
LOC: ED 21:10
DX: R45.851 Suicidal ideations (principal); F41.1 Generalized anxiety disorder; R06.4 Hyperventilation; I10 Essential (primary) hypertension; J44.9 Chronic obstructive pulmonary disease, unspecified; E78.5 Hyperlipidemia, unspecified; Z90.49 Acquired absence of other specified parts of digestive tract; Z90.710 Acquired absence of both cervix and uterus; Z95.1 Presence of aortocoronary bypass graft
CPT/HCPCS: 36415; 80053; 80307; 82140; 85025; 99284